=== PATIENT | male | born 1960 | race Caucasian/White ===

== ENCOUNTER 2020-03-06 13:48 | Outpatient (CLI) | payer BC ==
[2020-03-06 14:37] LABS: Estimated GFR-MDRD - POC Greater than 90
--- NOTE | 2020-03-06 15:06 | CT ---
CT Abdomen Pelvis W WO con History: Prostate cancer. History of stones. Comparison: None. Findings: Lung bases are relatively clear. No pericardial effusion. The spleen, pancreas, adrenal glands are unremarkable. No abnormal enhancing renal mass. On the delayed phase of contrast sequence there are no filling defects within the renal calyces, uret ers or posterior urinary bladder. The liver, gallbladder and adrenal glands are unremarkable. No retroperitoneal periaortic adenopathy. Aortoiliac contour is nonaneurysmal. High-grade L5/S1 degenerative disc space height loss with Modic type III endplate changes and disc os teophyte complex. No suspicious osteolytic or osteoblastic lesions. Impression: 1. No evidence for prostate cancer metastatic disease. 2. No nephroureterolithiasis or hydroureteronephrosis. No secondary evidence of a recently passed sto ne. 3. No abnormal renal enhancing mass. 4. No abnormal urothelial enhancing mass.
== END 2020-03-06 13:49 | disposition home or self-care (01) ==
LOC: SCSCT 13:48
PROVIDERS: ATTEND Urology
DX: C61 Malignant neoplasm of prostate (principal); Z87.442 Personal history of urinary calculi
CPT/HCPCS: 74178; 82565

== ENCOUNTER 2020-03-25 09:43 | Outpatient (CLI) | payer BC ==
--- NOTE | 2020-03-25 11:42 | MRI ---
MR OF THE PELVIS WITH AND WITHOUT CONTRAST INDICATION: 59-year-old male with history of 2 prior prostate biopsies and history of prostate cancer COMPARISON: None TECHNIQUE: Multiplanar, multisequence MR images were obtained of the pelvis with and without IV contr ast. 20 cc of MultiHance was utilized for the examination. The examination was reviewed on a separate [employer] 3-D workstation for multiplanar metric evaluation. FINDINGS: Prostate size: The prostate measured 3.8 x 3.1 x 2.9cm. 15.33 cc. Peripheral zone: There is a 2.1 x 1.0 cm T2 hypointense, ADC hypointense, abnormal enhancing lesion w ithin the posterior lateral and posterior medial base, mid gland and medial apex. No additional suspicious peripheral zone lesion is identified. Central zone: No suspicious signal abnormality or focal lesion. Neural vasculature: There is irregularity involving the right posterior lateral capsule of the prosta te gland in the region of the previous described focal zone lesion consistent with neurovascular invasion. This is best seen on image 14 of series 6. Regional lymphadenopathy: None Dynamic contrast enhancement: There is abnormal dynamic contrast enhancement associated with the righ t peripheral zone lesion. Osseous structures: No suspicious osseous lesion is identified. Additional findings: None.. IMPRESSION: 1. PIRADS 5- Very High (clinically significant cancer is highly likely to be present.) 2. 2.1 x 1.0 cm suspicious lesion involving the posterior lateral posterior medial base, posterior la teral posterior medial mid gland and posterior medial apex highly suspicious for malignancy. There is irregularity involving the adjacent prostatic capsule highly suspicious for right-sided neurovascu lar invasion.
== END 2020-03-25 09:44 | disposition home or self-care (01) ==
LOC: TBSIIMAG 09:43
PROVIDERS: ATTEND Urology
DX: C61 Malignant neoplasm of prostate (principal); N28.89 Other specified disorders of kidney and ureter; Z87.442 Personal history of urinary calculi
CPT/HCPCS: 72197